=== PATIENT | male | born 1965 | race Caucasian/White ===

== ENCOUNTER 2016-10-06 07:45 | Emergency (ER) | payer OTHER ==
[~2016-10-06] VITALS: Ht 175.3 cm; Wt 100.0 kg
[~2016-10-06 07:45] MED LIST: CITA20TA11 PO; HYDR12.5 PO; OMEP40CA36 PO; VALS80TA2 PO
[2016-10-06 07:48] VITALS: BP 147/99; PULSE 81; RESP 18; O2SAT 100
--- NOTE | 2016-10-06 07:48 | ED.REPORT ---
HPI-Back Pain 40 and Over Date of Service October 06, 2016 ED Provider: John Truong MD 51 year old male with a history of Jimy's syndrome and chronic back pain presents to the ER accompanied by his complaining of two days of back pain and bilateral hip pain, left greater than right. Symptoms onset gradually with muscular pain in his back and have since progressed to severe pain and spasm in his back and hips. Pain was exacerbated further after lifting a couch yesterday. Associated symptoms include several days of diarrhea which has since resolved after treating with Imodium. Patient reports that his Jimy's syndrome flare-ups are elicited by GI illness. He denies fever, cough, chest pain, nausea, vomiting, and any other symptoms. Nursing Notes Stated Complaint: BACK PAIN Nursing Notes Reviewed: Yes Allergies: Coded Allergies: No Known Allergies (Unverified Allergy, Unknown, 05/28/15) Scheduled Citalopram (Citalopram) 20 Mg Tablet 20 MG PO DAILY Hydrochlorothiazide (Hydrochlorothiazide) 12.5 Mg Capsule 12.5 MG PO DAILY Omeprazole (Omeprazole) 40 Mg Capsule.dr 40 MG PO DAILY Valsartan (Diovan) 80 Mg Tablet 80 MG PO DAILY General Time Seen by MD: 07:47 Chief Complaint Back pain Hx Obtained From: Patient Arrived By: Walk-in Sudden in Onset?: No Onset Occurred: 2 days ago Symptom Duration: Since onset Caused by: Spontaneous/no mechanism Location: : Spinal lumbar area Quality: Painful Severity: Current: Moderate Severity: Maximum: Moderate Associated with: Denies: Fever, Nausea, Vomiting Pertinent Negative: Pt denies other symptoms Similar Sx Previous: Yes Past Medical History Past Medical History Jimy's syndrome Chronic abdominal hernia Chronic back pain Denies SC Reports: Hypertension, Denies: Cancer, Coronary artery disease, Diabetes mellitus, Stroke Past Surgical History Reports: Appendectomy Smoking History Never Smoker Social History Alcohol Use: >5 per day Drug Use: Denies drug use Other Social History: Review of Systems Constitutional: Denies: Chills, Fever Respiratory: Denies: Non-productive cough, Shortness of breath Cardiovascular: Denies: Chest pain GI: Reports: Diarrhea, Denies: Nausea, Vomiting Musculoskeletal: Reports: Back pain, Joint pain (Hips, Left > Right), Lumbar pain, Denies: Extremity pain, Neck pain, Thoracic pain Complete sys rev & neg: except as marked. Physical Exam Initial Vital Signs Vital Signs (First) Date Time Temp Pulse Resp B/P Pulse Ox O2 Delivery O2 Flow Rate FiO2 10/06/16 07:48 37.0 81 18 147/99 100 Room Air Initial VS: Reviewed Head / Eyes: Atraumatic, Normocephalic Neck: Supple, Non-tender, Full range of motion Extremities: Vascular intact, Neuro intact, No swelling, No tenderness Skin: Warm, Dry, No cyanosis General/Constitutional: Awake, Alert, Well developed, Well nourished Respiratory / Chest: Breath sounds NL, Breath sounds = bilat, No respiratory distress, No rales, No rhonchi, No wheezing Cardiovascular: Heart rate NL, Regular rhythm, Heart sounds NL, No murmurs, Peripheral circulation NL Abdomen: Soft, Non-tender, No guarding, No rebound, No distention, No palpable mass, No pulsatile mass Easily reducible ventral midline upper abdominal hernia. Back: Full range of motion, No midline vertebral tend Extreme left low back pain with movement Neurologic: Oriented X3, Speech NL, No motor deficits, No sensory deficits, Reflexes equal bilat Lower Extremity / Pelvis / MS: Full range of motion, Non-tender, No deformity, Neurologic intact, Vascular intact Right knee mildly warm, no effusion. Interpretation & Diagnostics Lab Results Interpretation Result Diagram: 10/06/16 0832 10/06/16 0832 Test 10/06/16 08:32 10/06/16 08:35 White Blood Count 7.0th/mm3 (3.8-10.1) Red Blood Count 4.73mil/mm3 (4.40-5.80) Hemoglobin 14.4g/dL (13.8-17.2) Hematocrit 41.5% (41.0-50.0) Mean Corpuscular Volume 87.7fL (81-100) Mean Corpuscular Hemoglobin 30.4pg (27.0-35.0) Mean Corpuscular Hemoglobin Concent 34.7% (32.0-37.0) Red Cell Distribution Width 12.3% (12.3-15.4) Platelet Count 287bil/L (150-400) Neutrophils (%) (Auto) 67.9% (40-74) Lymphocytes (%) (Auto) 14.1% (14-46) Monocytes (%) (Auto) 14.9% (4-12) Eosinophils (%) (Auto) 1.1% (0-5) Basophils (%) (Auto) 1.0% (0-3) Erythrocyte Sedimentation Rate 20mm/hr (0-15) Sodium Level 140mEq/L (134-144) Potassium Level 4.5mEq/L (3.5-5.2) Chloride Level 100mEq/L (97-108) Carbon Dioxide Level 25mmol/L (18-29) Blood Urea Nitrogen 13mg/dL (6-24) Creatinine 0.73mg/dL (0.76-1.27) Estimat Glomerular Filtration Rate 121mL/min (>59) Glucose Level 116mg/dL (60-99) Calcium Level 9.5mg/dL (8.5-10.1) Total Bilirubin 0.7mg/dL (0.0-1.2) Aspartate Amino Transf (AST/SGOT) 20U/L (0-50) Alanine Aminotransferase (ALT/SGPT) 22U/L (0-44) Alkaline Phosphatase 69U/L (25-150) C-Reactive Protein 6.9mg/dL (0.0-0.5) Total Protein 6.7g/dL (6.4-8.4) Albumin 3.8g/dL (3.4-5.0) Hold Junior Top Tube Received (Received) Re-Eval/Medical Decision Source of Hx: Old records Re-Evaluation/Progress : Time of Eval: 09:44 Patient Status: Condition improved, Moderate relief, Pain improved Re-Evaluation/Progress Note: Discussed lab results and plan to discharge. Patient is amenable to the plan. Return precautions given. All other questions addressed. Counseled Regarding: Diagnosis, Lab results, Need for follow-up, When/why to return to ED Discharge & Departure Impression: Primary Impression: Low back pain Chronicity: acute Back pain laterality: left Sciatica presence: with sciatica Sciatica laterality: sciatica of left side Qualified Code: M54.42 - Lumbago with sciatica, left side Disposition: Home Discharge Condition All VS Reviewed: Yes Condition: Stable Patient Instructions: Acute Low Back Pain (ED) Additional Instructions: Testing is revealing for rheumatologic inflammation, perhaps consistent with Jimy's syndrome. For now I recommend naproxen 500 mg twice daily for the coming 1-2 weeks. Use oxycodone/APAP as needed for more severe pain. #15 tablets are dispensed. I recommended follow-up with Dr. Bright in the coming days for ongoing pain medication prescription if needed. I also recommend that you called the air traffic instructor today to make an appointment as soon as available to discuss strategies for the symptoms you are experiencing. Referrals: José Carrasco MD (PCP) 2-3 days Scribe Attestation Portions of this note were transcribed by Thanh Christopher. I, Dr. Truong, personally performed the history, physical exam and medical decision-making; I reviewed and confirmed the accuracy of the information in the transcribed note. Signed by: Cornelio Blackburn, 10/06/2016 at 09:45 copies to: José Carrasco MD, Kirk H MD October 06, 2016 07:48 THANH CHRISTOPHER October 06, 2016 07:56
[2016-10-06] MEDS ORDERED: oxyCODONE-Acetamin 10-325 mg Tablet PO ONE (08:20)
[2016-10-06] MEDS ORDERED: LORazepam 1 mg Tablet PO ONE (08:20)
[2016-10-06] MEDS ORDERED: predniSONE 20 mg Tablet PO ONE (08:20)
[2016-10-06 08:37] LABS: EOSINOPHILS % (AUTO) 1.1 % (0-5); MONOCYTES % (AUTO) 14.9 % (4-12); Mean Corpuscular Hemoglobin 30.4 pg (27.0-35.0); Mean Corpuscular Volume 87.7 fL (81-100); NEUTROPHILS % (AUTO) 67.9 % (40-74); Platelet Count 287 bil/L (150-400)
[2016-10-06 08:56] LABS: ERYTHROCYTE SEDIMENTATION RATE 20 mm/hr (0-15)
[2016-10-06] MEDS ORDERED: OXYC1TAB24 PO (09:51)
[2016-11-02] MEDS ORDERED: BACL10TA PO (15:13)
[2016-11-02] MEDS ORDERED: AZU500 PO (15:13)
[2016-11-02] MEDS ORDERED: HYDR-3740 PO (15:13)
[2016-11-02] MEDS ORDERED: DEXA6TAB PO (15:13)
== END 2016-10-06 09:30 | disposition home or self-care (01) ==
LOC: SED 07:45
DX: M54.42 Lumbago with sciatica, left side (principal); I10 Essential (primary) hypertension; M02.30 Reiter's disease, unspecified site
CPT/HCPCS: 36415; 80053; 85025; 85651; 86140; 96372; 99284; J1885